=== PATIENT | male | born 1945 | race Caucasian/White ===

== ENCOUNTER 2020-08-19 11:43 | Emergency (ER) | payer MEDICARE, OTHER ==
--- NOTE | 2020-08-19 12:16 | EDM.PDOC ---
ED HPI GENERAL MEDICAL PROBLEM - General Chief Complaint: Neck Problem Stated Complaint: FALL/NECK/SHOULDER AND CHEST PAIN Time Seen by Provider: 08/19/20 12:00 Source of Information: Reports: Patient, RN Notes Reviewed History Limitations: Reports: No Limitations - History of Present Illness INITIAL COMMENTS - FREE TEXT/NARRATIVE: Patient is a 74-year-old male who presents to the ED for a fall down some stairs. Patient notes he was at a house that was not familiar to him, he went to get his coat off of the coat rack, which was at the top of the stairs. He states that he misstepped, and ended up taking a tumble down 10 stairs. He initially hit his left upper chest/shoulder, and then fell down from there. He has pain, when he tries to move his neck in any motion, upper back pain, along with left upper chest pain and left shoulder soreness. He did not take anything prior to arrival to the ER for pain management. He has no headache, and he is denying any blurred vision or double vision. He did not have a bloody nose, and he does not think he he has had any tooth injuries. He has mild abrasions, 1 to his left cheekbone, and 2 on the dorsum of his right hand. Patient denies any other sick-like symptoms, fever/chills, cough/shortness of breath, nausea/vomiting/diarrhea. A c-collar was placed at time of triage by triage nurse, for immobilization of the cervical spine. Generalized Pain Score (Numeric/FACES): 8 - Related Data Allergies Allergy/AdvReac Type Severity Reaction Status Date / Time No Known Allergies Allergy Verified 08/19/20 11:59 Home Meds: Home Meds Acetaminophen/HYDROcodone [[place] 325-5 MG] 1 tab PO Q6H PRN #15 tablet 08/19/20 [Rx] Aspirin [Halfprin] 81 mg PO DAILY 08/19/20 [History] Orphenadrine [Norflex] 100 mg PO BID PRN #20 tab 08/19/20 [Rx] Past Medical History Cardiovascular History: Reports: High Cholesterol, Hypertension, Stents Endocrine/Metabolic History: Reports: Diabetes, Type II Social & Family History - Tobacco Use Tobacco Use Status *Q: Never Tobacco User Second Hand Smoke Exposure: No - Caffeine Use Caffeine Use: Reports: Coffee, Soda - Recreational Drug Use Recreational Drug Use: No ED ROS GENERAL - Review of Systems Review Of Systems: Comprehensive ROS is negative, except as noted in HPI. ED EXAM, UPPER BACK/NECK PAIN - Physical Exam Exam: See Below Exam Limited By: No Limitations General Appearance: Alert, WD/WN, No Apparent Distress Eye Exam: Bilateral Eye: EOMI, Normal Inspection, PERRL Ears Exam: Normal External Exam, Normal Canal, Hearing Grossly Normal, Normal TMs Nose Exam: Normal Inspection, Normal Mucousa, No Blood Throat/Mouth Exam: Normal Inspection, Normal Lips, Normal Teeth, Normal Gums, Normal Oropharynx, Normal Voice, No Airway Compromise Head Exam: Normocephalic, Facial Abrasions (small superficial abrasion noted to left lateral cheek bone) Neck Exam: Other (cevical collar in place until imaging is taken) Nexus Criteria: No: Evidence of Intoxication, Altered Level of Consciousness, Focal Neurological Deficit, Painful Distraction Injuries Cardiovascular/Respiratory: Regular Rate, Rhythm, No M/R/G, Normal Peripheral Pulses, Normal Breath Sounds, No Respiratory Distress GI/Abdominal: Normal Bowel Sounds, Soft, Non-Tender, No Distention, No Mass Back Exam: Normal Inspection, Full Range of Motion Extremities: Normal Inspection, Normal Range of Motion, Normal Capillary Refill Neurologic: cross roller II-XII nml As Tested, No Motor/Sensory Deficits, Alert, Normal Mood/Affect, Oriented x 3 Psychiatric: Normal Affect, Normal Mood Skin Exam: Normal Color, Warm/Dry Course - Vital Signs Last Recorded V/S: Last Vital Signs Temp 96.9 F 08/19/20 11:57 Pulse 80 08/19/20 14:05 Resp 18 08/19/20 14:05 BP 166/75 H 08/19/20 14:05 Pulse Ox 95 08/19/20 14:05 - Orders/Labs/Meds Orders: Active Orders 24 hr Category Date Time Status Cervical Spine wo Cont [CT] Stat Exams 08/19/20 12:09 Taken Chest wo Cont [CT] Stat Exams 08/19/20 12:10 Taken Head wo Cont [CT] Stat Exams 08/19/20 12:09 Taken - Re-Assessments/Exams Free Text/Narrative Re-Assessment/Exam: 08/19/20 12:15 Patient presents to the ED for the evaluation of his fall. We will get imaging to rule out acute bleed/injuries, and then develop a plan for pain management. He is not requesting anything for pain management at this time. 08/19/20 13:27 The patient's CTs demonstrate no acute fracture or other bony abnormalities. There was hematoma-like changes to the left anterior soft tissues on the chest. No evidence of pneumothorax. It is likely that the patient will feel quite sore over the next few days. But nothing appears to be broken. Departure - Departure Time of Disposition: 13:41 Disposition: Home, Self-Care 01 Condition: Good Clinical Impression: Fall Qualifiers: Encounter type: initial encounter Qualified Code(s): W19.XXXA - Unspecified fall, initial encounter Hematoma of chest wall Qualifiers: Encounter type: initial encounter Laterality: left Qualified Code(s): S20.212A - Contusion of left front wall of thorax, initial encounter - Discharge Information *PRESCRIPTION DRUG MONITORING PROGRAM REVIEWED*: Yes *COPY OF PRESCRIPTION DRUG MONITORING REPORT IN PATIENT [place]: No Prescriptions: Acetaminophen/HYDROcodone [[place] 325-5 MG] 1 tab PO Q6H PRN #15 tablet PRN Reason: Pain Orphenadrine [Norflex] 100 mg PO BID PRN #20 tab PRN Reason: Spasms Instructions: Contusion, [id number] Referrals: PCP,Not In Area [Primary Care Provider] - Forms: ED Department Discharge Additional Instructions: You have been evaluated in the ED for your injuries after your fall. You had CTs taken of your head, neck, and chest, all of which demonstrate no a cute bony abnormalities. You do have a contusion on your left upper chest, that will likely be sore and tender for a few days. Please use ice/heat as tolerated to the affected area. Please try to elevate the affected area to relieve swelling. You may take Tylenol 500 mg or ibuprofen 600mg q6 hrs for pain relief. Please do so until you have a tolerable level of pain with activity. Do not exceed 4000mg Tylenol or 3200mg ibuprofen in a 24 hour time period. You were given a prescription for a strong pain medication, hydrocodone/acetaminophen 5/325 mg., please take 1 tab every 6 hours as needed for pain not relieved by Tylenol or ibuprofen alone. Please note this medication does contain Tylenol in it, so do not take more than 4000 mg in a 24- hour time span. These medications can be addictive, so please take as few as possible to achieve adequate pain control. These meds can also be quite constipating, recommend that you increase your oral fluid intake and take a stool softener like MiraLAX while taking these medications. Do not drive while taking this medication. You were also given a prescription for Norflex, a muscle relaxer, please use 2 times a day as needed for further muscle spasms. Please return to ED if your symptoms should change or worsen. Sepsis Event Note (ED) - Evaluation Sepsis Screening Result: No Definite Risk - Focused Exam Vital Signs: Vital Signs Temp Pulse Resp BP Pulse Ox 08/19/20 14:05 80 18 166/75 H 95 08/19/20 11:57 96.9 F 75 20 176/83 H 95 - My Orders Last 24 Hours: My Active Orders 08/19/20 12:09 Cervical Spine wo Cont [CT] Stat Head wo Cont [CT] Stat 08/19/20 12:10 Chest wo Cont [CT] Stat - Assessment/Plan Last 24 Hours: My Active Orders 08/19/20 12:09 Cervical Spine wo Cont [CT] Stat Head wo Cont [CT] Stat 08/19/20 12:10 Chest wo Cont [CT] Stat
--- NOTE | 2020-08-21 09:20 | CT ---
PROCEDURE INFORMATION: Exam: CT Cervical Spine Without Contrast Exam date and time: 08/19/2020 12:16 PM Age: 74 years old Clinical indication: Neck pain; Patient HX: Fell down stairs TECHNIQUE: Imaging protocol: Computed tomography images of the cervical spine without contrast. COMPARISON: No relevant prior studies available. FINDINGS: Vertebrae: No acute fracture. Normal alignment. C2-C3: No significant disc protrusion. No severe spinal canal stenosis. No significant neural foraminal narrowing. C3-C4: No significant disc protrusion. No severe spinal canal stenosis. No significant neural foraminal narrowing. C4-C5: No significant disc protrusion. No severe spinal canal stenosis. No significant neural foraminal narrowing. C5-C6: No significant disc protrusion. No severe spinal canal stenosis. No significant neural foraminal narrowing. C6-C7: No significant disc protrusion. No severe spinal canal stenosis. No significant neural foraminal narrowing. C7-T1: No significant disc protrusion. No severe spinal canal stenosis. No significant neural foraminal narrowing. Soft tissues: Unremarkable. Lungs: Lung apices are normal. IMPRESSION: No acute findings. Thank you for allowing us to participate in the care of your patient. Dictated and Authenticated by: Mane Mayorga MD 08/19/2020 1:58 PM Central Time ([place] & [place]) [facility]
--- NOTE | 2020-08-21 09:21 | CT ---
PROCEDURE INFORMATION: Exam: CT Chest Without Contrast; Diagnostic Exam date and time: 08/19/2020 12:16 PM Age: 74 years old Clinical indication: Left-sided chest pain; Patient HX: Fell down 10 stairs TECHNIQUE: Imaging protocol: Diagnostic computed tomography of the chest without contrast. 3D rendering (Not supervised by radiologist): MIP and/or 3D reconstructed images were created by the technologist. COMPARISON: No relevant prior studies available. FINDINGS: Lungs: Atelectatic changes noted within the lung bases. Pleural space: There is no evidence of pneumothorax. There are no pleural effusions present. Heart: There is mild atherosclerotic calcification of the coronary arteries. Mediastinal space: Edematous changes/hematoma noted left anterior soft tissues. A small hiatal hernia is present. Aorta: Unremarkable. No aortic aneurysm. Lymph nodes: Unremarkable. No enlarged lymph nodes. Kidneys and ureters: Perinephric fat stranding noted bilaterally. Bones/joints: The thoracic spine demonstrates mild degenerative changes at multiple levels. Soft tissues: Unremarkable. IMPRESSION: 1. Edematous changes/hematoma noted left anterior soft tissues. 2. There is no evidence of pneumothorax. 3. There are no pleural effusions present. Thank you for allowing us to participate in the care of your patient. Dictated and Authenticated by: Kiko Patel DO 08/19/2020 2:08 PM Central Time ([place] & [place]) [facility]
--- NOTE | 2020-08-21 09:23 | CT ---
PROCEDURE INFORMATION: Exam: CT Head Without Contrast Exam date and time: 08/19/2020 12:16 PM Age: 74 years old Clinical indication: Pain; Other: Fell down 10 stairs TECHNIQUE: Imaging protocol: Computed tomography of the head without contrast. COMPARISON: No relevant prior studies available. FINDINGS: Brain: Normal. No hemorrhage. Unremarkable white matter. No mass effect. Cerebral ventricles: No ventriculomegaly. Bones/joints: Unremarkable. No acute fracture. Paranasal sinuses: Visualized sinuses are unremarkable. No fluid levels. Mastoid air cells: Visualized mastoid air cells are well aerated. Soft tissues: Unremarkable. IMPRESSION: No acute intracranial abnormality. Thank you for allowing us to participate in the care of your patient. Dictated and Authenticated by: Mane Mayorga MD 08/19/2020 2:01 PM Central Time ([place] & [place]) [facility]
== END 2020-08-19 14:05 | disposition home or self-care (01) ==
LOC: JD.ED 11:43
DX: S20.212A Contusion of left front wall of thorax, initial encounter (principal); S00.81XA Abrasion of other part of head, initial encounter; I10 Essential (primary) hypertension; E11.9 Type 2 diabetes mellitus without complications; Z79.82 Long term (current) use of aspirin; W10.9XXA Fall (on) (from) unspecified stairs and steps, initial encounter
CPT/HCPCS: 70450; 70450-26; 71250; 71250-26; 72125; 72125-26; 99283; 99285-25